=== PATIENT | female | born 1965 | race Caucasian/White ===

== ENCOUNTER 2017-01-07 01:59 | Emergency (ER) | payer MEDICAID, OTHER ==
[~2017-01-07] VITALS: Ht 162.6 cm; Wt 60.0 kg
[~2017-01-07 01:59] MED LIST: ZOFR4TAB PO
[2017-01-07 02:19] VITALS: BP 115/71; PULSE 72; RESP 16; TEMP 98.3; O2SAT 97
--- NOTE | 2017-01-07 02:29 | PD ---
HPI Chief Complaint: Alcohol/Drug Intoxication Time Seen by Provider: 02:08 Travel History International Travel<30 days: No Contact w/Intl Traveler<30days: No Traveled to known affect area: No History of Present Illness HPI 51-year-old white female presents to emergency department by EMS under [place] act by PD. The patient had been taking alcohol this evening. She had been coming agitated and combative with family members. They had called the police. The patient was placed under [place] act. No suicidal homicidal ideation. History of alcohol abuse and cirrhosis. Patient's history is very limited due to her intoxication. The patient has to be placed in soft restraints due to her disruption of her care. PFSH Past Medical History Arthritis: No Asthma: No Autoimmune Disease: No Anxiety: No Depression: Yes (HIGHLY DEPRESSED) Heart Rhythm Problems: No Cancer: Yes (SOME FAMILY HISTORY) Cardiovascular Problems: No High Cholesterol: Yes Chemotherapy: No Chest Pain: No Congestive Heart Failure: No COPD: No Cerebrovascular Accident: No Dementia: No Diabetes: No Diminished Hearing: No Endocrine: No Gastrointestinal Disorders: Yes GERD: No Genitourinary: No Headaches: Yes Hiatal Hernia: No Hypertension: Yes (PIH) Immune Disorder: No Kidney Stones: No Musculoskeletal: Yes (SCOLIOSIS OF THE SPINE) Neurologic: Yes Psychiatric: Yes Reproductive: No Respiratory: No Migraines: No Radiation Therapy: No Renal Failure: No Seizures: Yes Sickle Cell Disease: No Sleep Apnea: No Thyroid Disease: No Ulcer: Yes PNEUMOCCOCAL Vaccine (Year): 2 ?: Not Menopausal: Yes : 2 Para: 2 Past Surgical History Abdominal Surgery: No Cardiac Surgery: No Ear Surgery: No Endocrine Surgery: No Eye Surgery: No Genitourinary Surgery: No Gynecologic Surgery: No Neurologic Surgery: Yes (BRAIN BLEED 04/2010) Oral Surgery: No Thoracic Surgery: No Other Surgery: Yes (FACIAL RECONSTRUCTION S/P "FALL FROM RAGHU" IN 1985) Social History Alcohol Use: Yes (3-4 BEER/DAILY) Tobacco Use: Yes (1/2 PPD) Substance Use: Yes Allergies-Medications (Allergen,Severity, Reaction): Coded Allergies: No Known Allergies (Verified , 01/07/17) Reported Meds & Prescriptions Reported Meds & Active Scripts Active No Active Prescriptions or Reported Medications Review of Systems ROS Limitations: Intoxication Physical Exam Narrative GENERAL: Well-developed obese female who appears intoxicated. Speech is slurred and she smells of EtOH. SKIN: Focused skin assessment warm/dry. HEAD: Atraumatic. Normocephalic. EYES: Pupils equal and round. No scleral icterus. No injection or drainage. ENT: No nasal bleeding or discharge. Mucous membranes pink and moist. NECK: Trachea midline. No JVD. CARDIOVASCULAR: Regular rate and rhythm. No murmur appreciated. RESPIRATORY: No accessory muscle use. Clear to auscultation. Breath sounds equal bilaterally. GASTROINTESTINAL: Abdomen soft, non-tender, distended. MUSCULOSKELETAL: No obvious deformities. No clubbing. No cyanosis. No edema. NEUROLOGICAL: Awake and alert. No obvious cranial nerve deficits. Motor grossly within normal limits. Slurred speech. PSYCHIATRIC: Poor insight and judgment. Data Data Last Documented VS Vital Signs Date Time Temp Pulse Resp B/P (MAP) Pulse Ox O2 Delivery O2 Flow Rate FiO2 01/07/17 02:24 16 97 Room Air 01/07/17 02:19 98.3 72 115/71 (86) Orders Orders Restraints Non-Violent TARA.Q3H (01/07/17 02:11) MDM Medical Decision Making Medical Screen Exam Complete: Yes Emergency Medical Condition: Yes Medical Record Reviewed: Yes Differential Diagnosis Differential diagnoses: Alcohol intoxication, substance abuse, electrolyte abnormality, malingering Narrative Course We have contacted the patient's . He will be willing to come pick the patient up later this morning. The patient will be allowed to sleep it off and sober appear in the ER. We've advised the patient's to come by and pick her up around 6 AM. This is alcohol induced mood disorder Diagnosis Primary Impression: Alcohol-induced mood disorder Patient Instructions: General Instructions Additional Instructions: Rest. Increase fluids. Avoid alcohol. Avoid illegal substances. Follow-up with Meghan Benitez for detox. Do not operate a car or any heavy machinery under the influence of alcohol or drugs. Follow-up with a medical doctor this week. Return to the ER for emergencies Med/Other Pt SpecificInfo: No Meds Exist/No RX given Scripts No Active Prescriptions or Reported Meds Disposition: 01 DISCHARGE HOME Condition: Stable Mehrdad Barreto Jan 07, 2017 02:29
[2017-01-07 06:15] VITALS: BP 110/52; TEMP 98.3
== END 2017-01-07 06:47 | disposition home or self-care (01) ==
LOC: NEPD 01:59
DX: F10.94 Alcohol use, unspecified with alcohol-induced mood disorder (principal); F32.9 Major depressive disorder, single episode, unspecified; E78.00 Pure hypercholesterolemia, unspecified
CPT/HCPCS: 99281

== ENCOUNTER 2017-01-09 18:42 | Emergency (ER) | payer MEDICAID, OTHER ==
[~2017-01-09] VITALS: Ht 162.6 cm; Wt 73.0 kg
[2017-01-09 19:06] VITALS: BP 93/69; PULSE 62; RESP 17; O2SAT 100
[2017-01-09 21:25] LABS: AUTOMATED NEUTROPHIL # 2.9 TH/MM3 (1.8-7.7); BASOPHIL % 0.8 % (0.0-2.0); EOSINOPHIL # 0.2 TH/MM3 (0-0.4); EOSINOPHIL % 3.1 % (0.0-4.0); HEMATOCRIT 43.4 % (35.0-46.0); LYMPH % 35.7 % (9.0-44.0); MEAN CELL VOLUME 105.4 FL (80.0-100.0); MEAN CORPUSCULAR HEMOGLOBIN 36.3 PG (27.0-34.0); MEAN CORPUSCULAR HGB CONC 34.4 % (32.0-36.0); MONO % 8.9 % (0.0-8.0); NEUT % 51.5 % (16.0-70.0); PLATELET COUNT 99 TH/MM3 (150-450); RED BLOOD COUNT 4.12 MIL/MM3 (4.00-5.30); RED CELL DISTRIBUTION WIDTH 14.5 % (11.6-17.2); WHITE BLOOD COUNT 5.7 TH/MM3 (4.0-11.0)
[2017-01-09 21:27] LABS: HEMO FLAGS AUTO DIFF
[2017-01-09 22:02] LABS: PLATELET ESTIMATE SMEAR LOW (NORMAL); PLATELET MORPHOLOGY ENLARGED (NORMAL); SCAN/DIFF AUTO DIFF CONFIRMED
[2017-01-09 22:05] LABS: ALCOHOL 263 MG/DL (0-5); ALT (GPT) 62 U/L (10-53); ANION GAP 9 MEQ/L (5-15); AST (GOT) 96 U/L (15-37); BICARBONATE 20.9 MEQ/L (21.0-32.0); BLOOD UREA NITROGEN 3 MG/DL (7-18); CHLORIDE 114 MEQ/L (98-107); GLOMERULAR FILTRATION RATE 179 ML/MIN (>89); POTASSIUM 3.8 MEQ/L (3.5-5.1); SODIUM (NA) 144 MEQ/L (136-145)
[2017-01-09 22:08] LABS: ALKALINE PHOSPHATASE 101 U/L (45-117); TOTAL BILIRUBIN ADULT 0.4 MG/DL (0.2-1.0)
[2017-01-10 02:00] VITALS: BP 100/63; PULSE 71; RESP 16; O2SAT 96
[2017-01-10 05:34] VITALS: BP 118/77; PULSE 89; RESP 16; O2SAT 96
--- NOTE | 2017-01-10 06:28 | PD ---
HPI Chief Complaint: Psychiatric Symptoms Time Seen by Provider: 06:17 Travel History International Travel<30 days: No Contact w/Intl Traveler<30days: No Traveled to known affect area: No History of Present Illness HPI Patient is a 51-year-old female presenting to the emergency Department under Yusuf act for psychiatric evaluation. Patient reports that she's been depressed for the last 3 days since her younger brother from a heart attack. She reports drinking alcohol. She has a history of cirrhosis as well as hepatitis C. She denies any suicidal or homicidal ideations. She further denies any hallucinations. She has no complaints of pain at this time. [facility] Past Medical History Arthritis: No Asthma: No Autoimmune Disease: No Anxiety: No Depression: Yes Heart Rhythm Problems: No Cancer: Yes (SOME FAMILY HISTORY) Cardiovascular Problems: No High Cholesterol: Yes Chemotherapy: No Chest Pain: No Congestive Heart Failure: No COPD: No Cerebrovascular Accident: No Dementia: No Diabetes: No Diminished Hearing: No Endocrine: No Gastrointestinal Disorders: Yes GERD: No Genitourinary: No Headaches: Yes Hiatal Hernia: No Hypertension: Yes (PIH) Immune Disorder: No Kidney Stones: No Musculoskeletal: Yes (SCOLIOSIS OF THE SPINE) Neurologic: Yes Psychiatric: Yes Reproductive: No Respiratory: No Migraines: No Radiation Therapy: No Renal Failure: No Seizures: Yes Sickle Cell Disease: No Sleep Apnea: No Thyroid Disease: No Ulcer: Yes PNEUMOCCOCAL Vaccine (Year): 2 ?: Unknown Menopausal: Yes : 2 Para: 2 Past Surgical History Abdominal Surgery: No Cardiac Surgery: No Ear Surgery: No Endocrine Surgery: No Eye Surgery: No Genitourinary Surgery: No Gynecologic Surgery: No Neurologic Surgery: Yes (BRAIN BLEED 04/2010) Oral Surgery: No Thoracic Surgery: No Other Surgery: Yes (FACIAL RECONSTRUCTION S/P "FALL FROM RAGHU" IN 1985) Social History Alcohol Use: Yes (3-4 BEER/DAILY) Tobacco Use: Yes (1/2 PPD) Substance Use: Yes Allergies-Medications (Allergen,Severity, Reaction): Coded Allergies: No Known Allergies (Verified , 01/07/17) Reported Meds & Prescriptions Reported Meds & Active Scripts Active No Active Prescriptions or Reported Medications Review of Systems Except as stated in HPI: all other systems reviewed are Neg Psychiatric: Positive: Depression, Substance Abuse Physical Exam Narrative GENERAL: Well-developed, well-nourished, alert female. Resting in no acute distress. SKIN: Warm and dry. HEAD: Atraumatic. Normocephalic. EYES: Pupils equal and round. No scleral icterus. No injection or drainage. ENT: No nasal bleeding or discharge. Mucous membranes pink and moist. NECK: Trachea midline. No JVD. CARDIOVASCULAR: Regular rate and rhythm. RESPIRATORY: No accessory muscle use. Clear to auscultation. Breath sounds equal bilaterally. GASTROINTESTINAL: Abdomen soft, non-tender, nondistended. Hepatic and splenic margins not palpable. MUSCULOSKELETAL: Extremities without clubbing, cyanosis, or edema. No obvious deformities. NEUROLOGICAL: Awake and alert. No obvious cranial nerve deficits. Motor grossly within normal limits. Five out of 5 muscle strength in the arms and legs. Normal speech. PSYCHIATRIC: Depressed mood and affect; insight and judgment normal. Data Data Last Documented VS Vital Signs Date Time Temp Pulse Resp B/P (MAP) Pulse Ox O2 Delivery O2 Flow Rate FiO2 01/10/17 05:34 89 16 118/77 (91) 96 Room Air Orders Orders Complete Blood Count With Diff (01/09/17 20:44) Comprehensive Metabolic Panel (01/09/17 20:44) Psych Screen (01/09/17 20:44) Drug Screen, Random Urine (01/09/17 20:44) Alcohol (Ethanol) (01/09/17 20:44) Diet Regular Basic (01/10/17 Breakfast) Labs Laboratory Tests Test 01/09/17 21:13 01/09/17 21:23 White Blood Count 5.7 TH/MM3 Red Blood Count 4.12 MIL/MM3 Hemoglobin 15.0 GM/DL Hematocrit 43.4 % Mean Corpuscular Volume 105.4 FL Mean Corpuscular Hemoglobin 36.3 PG Mean Corpuscular Hemoglobin Concent 34.4 % Red Cell Distribution Width 14.5 % Platelet Count 99 TH/MM3 Mean Platelet Volume 9.8 FL Neutrophils (%) (Auto) 51.5 % Lymphocytes (%) (Auto) 35.7 % Monocytes (%) (Auto) 8.9 % Eosinophils (%) (Auto) 3.1 % Basophils (%) (Auto) 0.8 % Neutrophils # (Auto) 2.9 TH/MM3 Lymphocytes # (Auto) 2.0 TH/MM3 Monocytes # (Auto) 0.5 TH/MM3 Eosinophils # (Auto) 0.2 TH/MM3 Basophils # (Auto) 0.0 TH/MM3 CBC Comment AUTO DIFF Differential Comment AUTO DIFF CONFIRMED Platelet Estimate LOW Platelet Morphology Comment ENLARGED Blood Urea Nitrogen 3 MG/DL Creatinine 0.38 MG/DL Random Glucose 82 MG/DL Total Protein 7.8 GM/DL Albumin 3.5 GM/DL Calcium Level 8.9 MG/DL Alkaline Phosphatase 101 U/L Aspartate Amino Transf (AST/SGOT) 96 U/L Alanine Aminotransferase (ALT/SGPT) 62 U/L Total Bilirubin 0.4 MG/DL Sodium Level 144 MEQ/L Potassium Level 3.8 MEQ/L Chloride Level 114 MEQ/L Carbon Dioxide Level 20.9 MEQ/L Anion Gap 9 MEQ/L Estimat Glomerular Filtration Rate 179 ML/MIN Ethyl Alcohol Level 263 MG/DL Urine Opiates Screen NEG Urine Barbiturates Screen NEG Urine Amphetamines Screen NEG Urine Benzodiazepines Screen NEG Urine Cocaine Screen NEG Urine Cannabinoids Screen NEG MDM Medical Decision Making Medical Screen Exam Complete: Yes Emergency Medical Condition: Yes Interpretation(s) Vital Signs Date Time Temp Pulse Resp B/P (MAP) Pulse Ox O2 Delivery O2 Flow Rate FiO2 01/10/17 05:34 89 16 118/77 (91) 96 Room Air 01/10/17 02:00 71 16 100/63 (75) 96 Room Air 01/09/17 19:06 62 17 93/69 (77) 100 Differential Diagnosis Mood disorder versus substance abuse versus alcohol intoxication versus chronic alcoholism versus suicidal ideations versus other Narrative Course Patient's 51-year-old female that presented to the emergency Department under Yusuf act for psychiatric evaluation. Patient denies suicidal ideations but reports feeling depressed. On arrival patient became verbally aggressive with psychiatric staff however upon my assessment patient is resting comfortably and she was cooperative with exam. On arrival patient was intoxicated with a blood alcohol level 263. CBC is unremarkable, chemistry with mild transaminitis. Urine drug screen is negative. Patient's vital signs are stable. Patient is medically cleared for psychiatric evaluation at this time. Diagnosis Primary Impression: Medical clearance for psychiatric admission Additional Impression: Alcohol intoxication Qualified Codes: F10.920 - Alcohol use, unspecified with intoxication, uncomplicated Scripts No Active Prescriptions or Reported Meds Condition: Stable Portia Ribera Jan 10, 2017 06:28
[2017-01-10 10:00] VITALS: BP 126/85; PULSE 92; RESP 16
--- NOTE | 2017-01-10 12:06 | PD ---
Physical Exam Time Seen by Provider: 12:04 SAKINA Conway, has evaluated the patient, lifted the Yusuf act and cleared the patient for discharge. Data Data Last Documented VS Vital Signs Date Time Temp Pulse Resp B/P (MAP) Pulse Ox O2 Delivery O2 Flow Rate FiO2 01/10/17 10:00 92 16 126/85 (99) Room Air 01/10/17 05:34 96 Orders Orders Complete Blood Count With Diff (01/09/17 20:44) Comprehensive Metabolic Panel (01/09/17 20:44) Psych Screen (01/09/17 20:44) Drug Screen, Random Urine (01/09/17 20:44) Alcohol (Ethanol) (01/09/17 20:44) Diet Regular Basic (01/10/17 Breakfast) Diet Regular Basic (01/10/17 Lunch) Labs Laboratory Tests Test 01/09/17 21:13 01/09/17 21:23 White Blood Count 5.7 TH/MM3 Red Blood Count 4.12 MIL/MM3 Hemoglobin 15.0 GM/DL Hematocrit 43.4 % Mean Corpuscular Volume 105.4 FL Mean Corpuscular Hemoglobin 36.3 PG Mean Corpuscular Hemoglobin Concent 34.4 % Red Cell Distribution Width 14.5 % Platelet Count 99 TH/MM3 Mean Platelet Volume 9.8 FL Neutrophils (%) (Auto) 51.5 % Lymphocytes (%) (Auto) 35.7 % Monocytes (%) (Auto) 8.9 % Eosinophils (%) (Auto) 3.1 % Basophils (%) (Auto) 0.8 % Neutrophils # (Auto) 2.9 TH/MM3 Lymphocytes # (Auto) 2.0 TH/MM3 Monocytes # (Auto) 0.5 TH/MM3 Eosinophils # (Auto) 0.2 TH/MM3 Basophils # (Auto) 0.0 TH/MM3 CBC Comment AUTO DIFF Differential Comment AUTO DIFF CONFIRMED Platelet Estimate LOW Platelet Morphology Comment ENLARGED Blood Urea Nitrogen 3 MG/DL Creatinine 0.38 MG/DL Random Glucose 82 MG/DL Total Protein 7.8 GM/DL Albumin 3.5 GM/DL Calcium Level 8.9 MG/DL Alkaline Phosphatase 101 U/L Aspartate Amino Transf (AST/SGOT) 96 U/L Alanine Aminotransferase (ALT/SGPT) 62 U/L Total Bilirubin 0.4 MG/DL Sodium Level 144 MEQ/L Potassium Level 3.8 MEQ/L Chloride Level 114 MEQ/L Carbon Dioxide Level 20.9 MEQ/L Anion Gap 9 MEQ/L Estimat Glomerular Filtration Rate 179 ML/MIN Ethyl Alcohol Level 263 MG/DL Urine Opiates Screen NEG Urine Barbiturates Screen NEG Urine Amphetamines Screen NEG Urine Benzodiazepines Screen NEG Urine Cocaine Screen NEG Urine Cannabinoids Screen NEG MDM Supervised Visit with SEJAL: No Narrative Course SAKINA Larsen, has evaluated the patient, lifted the Yusuf act and cleared the patient for discharge. Patient contracts safety. Denies suicidal or homicidal ideations. Patient will be provided community resource packet to DENY for follow-up. Has friends and family for support. Patient is medically cleared for discharge. Diagnosis Primary Impression: Alcohol intoxication Qualified Codes: F10.920 - Alcohol use, unspecified with intoxication, uncomplicated Referrals: KEITH (Out patient) [facility] Primary Care Physician Psychiatrist Papito [facility] Patient Instructions: Abuse of Alcohol (ED), Alcohol Dependence (ED), Alcohol Intoxication (ED), General Instructions, Mood Disorders (ED) Additional Instruction: Contract safety to your self and others Stop drinking alcohol Follow-up with AA meetings Follow-up with psychiatry Follow-up with primary care provider Follow-up with Zack Manning Return to the emergency department immediately with worsening of symptoms Med/Other Pt SpecificInfo: No Meds Exist/No RX given Scripts No Active Prescriptions or Reported Meds Disposition: 01 DISCHARGE HOME Condition: Stable Kaci Nascimento Jan 10, 2017 12:06
--- NOTE | 2017-01-10 12:15 | PD ---
History of Present Illness Chief Complaint: Psychiatric Symptoms Time Seen by Provider: 11:45 Travel History International Travel<30 Days: No Contact w/Intl Traveler<30days: No Known affected area: No Legal Status Legal Status: Yusuf Act Yusuf Act Signed By: Luann Yusuf Act Comment: OFFICER [employer] [facility] [id number] CASE #[id number] History of Present Illness: History of Present Illness HPI Patient is a 51-year-old female with history of alcohol abuse who presents to the ED under Yusuf act for psychiatric evaluation. Patient reports that she' s been depressed for the last 3 days since her younger brother from a heart attack. She reports drinking alcohol today and presents to ED with BAl of 263. She admits to drinking earlier in the day and attributes the high level of intoxication to having taken cold medicine along with a beer. She denies any suicidal or homicidal ideations. She further denies any hallucinations. She was allowed to sober up clinically and once she was sober she request to be discharged. She admits to feeling sad over the of her brother and that she is unable to travel to his . She denies feeling suicidal and states she has a brand new baby by the name of Quinton and that that is reason enough to live. On the other hand she sees no reason to stop drinking alcohol despite her medical condition including hepatitis C. PFSH Past Medical History Arthritis: No Asthma: No Autoimmune Disease: No Anxiety: No Depression: Yes Heart Rhythm Problems: No Cancer: Yes (SOME FAMILY HISTORY) Cardiovascular Problems: No High Cholesterol: Yes Chemotherapy: No Chest Pain: No Congestive Heart Failure: No COPD: No Cerebrovascular Accident: No Dementia: No Diabetes: No Diminished Hearing: No Endocrine: No Gastrointestinal Disorders: Yes GERD: No Genitourinary: No Headaches: Yes Hiatal Hernia: No Hypertension: Yes (PIH) Immune Disorder: No Kidney Stones: No Musculoskeletal: Yes (SCOLIOSIS OF THE SPINE) Neurologic: Yes Psychiatric: Yes Reproductive: No Respiratory: No Migraines: No Radiation Therapy: No Renal Failure: No Seizures: Yes Sickle Cell Disease: No Sleep Apnea: No Thyroid Disease: No Ulcer: Yes PNEUMOCCOCAL Vaccine (Year): 2 ?: Unknown Menopausal: Yes : 2 Para: 2 Past Surgical History Abdominal Surgery: No Cardiac Surgery: No Ear Surgery: No Endocrine Surgery: No Eye Surgery: No Genitourinary Surgery: No Gynecologic Surgery: No Neurologic Surgery: Yes (BRAIN BLEED 04/2010) Oral Surgery: No Thoracic Surgery: No Other Surgery: Yes (FACIAL RECONSTRUCTION S/P "FALL FROM RAGHU" IN 1985) Psychiatric History Psychiatric History Hx Psychiatric Treatment: NO PSYCHIATRIC HISTORY No suicdal a ttempts. History of Inpatient Treatment: No Guns or firearms in home: No Social History . Lives with her and her sister. Hx Alcohol Use: Yes (3-4 BEER/DAILY) Hx Tobacco Use: Yes (/2 PPD) Hx Substance Use: Yes Substance Use Type: Alcohol Other Substances Used: LONG HISTORY OF ALCOHOLISM Hx of Substance Use Treatment: Yes Family Psychiatric History Negative Allergies-Medications (Allergen,Severity, Reaction): Coded Allergies: No Known Allergies (Verified , 01/07/17) Reported Meds & Prescriptions Reported Meds & Active Scripts Active No Active Prescriptions or Reported Medications Review of Systems Except as stated in HPI: all other systems reviewed are Neg Mental Status Examination Appearance: Appropriate Consciousness: Alert Orientation: x4 Motor Activity: Normal gait Speech: Unremarkable Language: Adequate Fund of Knowledge: Adequate Attention and Concentration: Adequate Memory: Unremarkable Mood: Appropriate Affect: Appropriate Thought Process & Associations: Intact Thought Content: Appropriate Hallucination Type: None Delusion Type: None Suicidal Ideation: No Suicidal Plan: No Suicidal Intention: No Homicidal Ideation: No Homicidal Plan: No Homicidal Intention: No Insight: Poor Judgment: Adequate MDM Medical Decision Making Medical Record Reviewed: Yes Assessment/Plan Patient is a 51-year-old female with history of alcohol abuse who presents to the ED under Yusuf act for psychiatric evaluation. Patient reports that she' s been depressed for the last 3 days since her younger brother from a heart attack. She reports drinking alcohol today and presents to ED with BAl of 263. She admits to drinking earlier in the day and attributes the high level of intoxication to having taken cold medicine along with a beer. She denies any suicidal or homicidal ideations. She further denies any hallucinations. She was allowed to sober up clinically and once she was sober she request to be discharged. She admits to feeling sad over the of her brother and that she is unable to travel to his . She denies feeling suicidal and states she has a brand new baby by the name of Quinton and that that is reason enough to live. Dg langley not meet criteria for inpatient psychiatric treatment and shivam not meet criteria under the yusuf act . She acknowledges she has problems with alcohol but is not ready to address this issue at this time. Ben YOUNG. Psychoeducation provided. Clear for discharge from psychiatry. Orders Orders Complete Blood Count With Diff (01/09/17 20:44) Comprehensive Metabolic Panel (01/09/17 20:44) Psych Screen (01/09/17 20:44) Drug Screen, Random Urine (01/09/17 20:44) Alcohol (Ethanol) (01/09/17 20:44) Diet Regular Basic (01/10/17 Breakfast) Diet Regular Basic (01/10/17 Lunch) Ed Discharge Order (01/10/17 12:06) Results Vital Signs Date Time Temp Pulse Resp B/P (MAP) Pulse Ox O2 Delivery O2 Flow Rate FiO2 01/10/17 10:00 92 16 126/85 (99) Room Air 01/10/17 05:34 89 16 118/77 (91) 96 Room Air 01/10/17 02:00 71 16 100/63 (75) 96 Room Air 01/09/17 19:06 62 17 93/69 (77) 100 Laboratory Tests Test 01/09/17 21:13 01/09/17 21:23 White Blood Count 5.7 Red Blood Count 4.12 Hemoglobin 15.0 Hematocrit 43.4 Mean Corpuscular Volume 105.4 Mean Corpuscular Hemoglobin 36.3 Mean Corpuscular Hemoglobin Concent 34.4 Red Cell Distribution Width 14.5 Platelet Count 99 Mean Platelet Volume 9.8 Neutrophils (%) (Auto) 51.5 Lymphocytes (%) (Auto) 35.7 Monocytes (%) (Auto) 8.9 Eosinophils (%) (Auto) 3.1 Basophils (%) (Auto) 0.8 Neutrophils # (Auto) 2.9 Lymphocytes # (Auto) 2.0 Monocytes # (Auto) 0.5 Eosinophils # (Auto) 0.2 Basophils # (Auto) 0.0 CBC Comment AUTO DIFF Differential Comment AUTO DIFF CONFIRMED Platelet Estimate LOW Platelet Morphology Comment ENLARGED Blood Urea Nitrogen 3 Creatinine 0.38 Random Glucose 82 Total Protein 7.8 Albumin 3.5 Calcium Level 8.9 Alkaline Phosphatase 101 Aspartate Amino Transf (AST/SGOT) 96 Alanine Aminotransferase (ALT/SGPT) 62 Total Bilirubin 0.4 Sodium Level 144 Potassium Level 3.8 Chloride Level 114 Carbon Dioxide Level 20.9 Anion Gap 9 Estimat Glomerular Filtration Rate 179 Ethyl Alcohol Level 263 Urine Opiates Screen NEG Urine Barbiturates Screen NEG Urine Amphetamines Screen NEG Urine Benzodiazepines Screen NEG Urine Cocaine Screen NEG Urine Cannabinoids Screen NEG Diagnosis Primary Impression: Alcohol intoxication Referrals: KEITH (Out patient) [facility] Primary Care Physician Psychiatrist Papito PARKER Behavior[facility] Departure Forms: Tests/Procedures Patient Instructions: General Instructions, Mood Disorders (ED), Alcohol Intoxication (ED), Abuse of Alcohol (ED), Alcohol Dependence (ED) Additional Instructions: Contract safety to your self and others Stop drinking alcohol Follow-up with AA meetings Follow-up with psychiatry Follow-up with primary care provider Follow-up with Zack Benitez/KEITH Return to the emergency department immediately with worsening of symptoms Prescriptions No Active Prescriptions or Reported Meds Disposition: 01 DISCHARGE HOME Condition: Stable Problem Qualifiers Primary Impression: Alcohol intoxication Qualified Codes: F10.920 - Alcohol use, unspecified with intoxication, uncomplicated Suzie Davidson [employer] OBSERV[employer] Jan 10, 2017 12:15
[2017-01-10 12:24] VITALS: BP 126/85; TEMP 98
== END 2017-01-10 12:45 | disposition home or self-care (01) ==
LOC: NEDAMB 18:42 → NEPJ 01-10 12:45
DX: F10.129 Alcohol abuse with intoxication, unspecified (principal); I10 Essential (primary) hypertension; F32.9 Major depressive disorder, single episode, unspecified; Z72.0 Tobacco use
CPT/HCPCS: 80053; 80307; 85025; 99284